=== PATIENT | male | born 1960 | race Caucasian/White ===

== ENCOUNTER 2022-12-09 11:36 | Emergency (ER) | payer MEDICAID, SELFPAY ==
[2022-12-09 11:41] VITALS: BP 112/87; PULSE 94; RESP 18; TEMP 36.8; O2SAT 94
--- NOTE | 2022-12-09 13:10 | ED.GENADUL_ITS ---
Discharge Plan Disposition Patient Disposition: Home Discharge Details Clinical Impression: Fracture of radius and ulna Primary Care Provider: None,None ED Provider: Rodriguez Mullins Home Meds and New Rx's Prescriptions: No Action ibuprofen [Advil] 200 MG tablet 600 mg PO Q8H PRN PRN cephalexin 500 MG capsule 500 mg PO QID Qty: 12 0RF Patient Comments: per pt not taking Discharge Instructions Instructions: Wrist Fracture in Adults (ED) Additional Instructions: You may continue to use [id number] pain medication as needed for discomfort. Please keep splint on and return to the emergency department for any new or significant worsening of symptoms otherwise follow-up with orthopedic clinic next week. Please call the office on Monday morning and they will inform you of your follow-up appointment. Referrals: [facility] [Provider Group] Discharge Data Discharge Date/Time-TO BE ENTERED AT DEPARTURE: 12/09/22 15:12 Medical Decision Making Patient presenting to the emergency department for chief complaint of right wrist pain secondary to trauma. Patient states he was seen at [facility] yesterday after falling off a ladder and fracturing his right wrist. He was told that he needed to be seen by orthopedics today for proper reduction of wound but was splinted in the ER. Patient states that he did not want to follow-up with [facility]. Physical exam shows a splint was in place with sensation cap refill and movement intact distal to splinting with no abnormality noted. We will request records and imaging pushed from [facility] and will consult with our Ortho team. Reviewed radiological imaging and it does appear the patient has a distal radius and ulnar fracture that is comminuted and angulated. Will consult Ortho. Spoke with Dr. Vergara who requested new images today as the images that were reviewed were from previous splinting New images were reviewed and we contacted orthopedist who recommended patient keep splint on and follow-up on an outpatient basis next week. Patient placed on follow-up list and was given orthopedic number to call after the weekend. After discussion of diagnosis and plan of care patient has no further needs, questions, or concerns and states clear understanding to return to the emergency department for any worsening symptoms. This documentation was generated using [employer] system, please disregard any oddities of phrase or misspellings. HPI General Mode of arrival: ambulatory . Date/Time Provider Initiated Documentation: 12/09/22 11:37 . Limitations to Documentation: no limitations . Information obtained by: patient and RN notes reviewed . History of Present Illness 62 year old M presents to the emergency department with the chief complaint of Right wrist fracture, described as mild and moderate, Quality is described as aching, and is localized to the right and upper extremity. Patient started experiencing this day(s) (1) and it has been constant. No relieving factors improve symptom(s), No exacerbating factors reported . Patient notes no other symptoms.. Patient did receive the following treatments prior to arrival, splint Related Data Home Medications Medication Instructions Recorded Confirmed cephalexin 500 mg capsule 500 mg PO QID #12 caps 02/01/13 ibuprofen 200 mg tablet (Advil) 600 mg PO Q8H PRN PRN 02/01/13 12/09/22 Previous Rx's Medication Instructions Recorded cephalexin 500 mg capsule 500 mg PO QID #12 caps 02/01/13 Allergies Allergy/AdvReac Type Severity Reaction Status Date / Time No Known Allergies Allergy Unverified 02/01/13 16:50 General Stated Complaint: Orthopedic VIVIENNE: 4 Review of Systems Constitutional Constitutional: Denies fever(s) Musculoskeletal Musculoskeletal: Reports as per HPI, Reports arthralgias, Denies numbness and Denies tingling Integumentary/Breasts Skin/Breast: Denies unusual bruising Neurologic Neurologic: Denies numbness and Denies tingling PFSH All Active Problems (Updated 12/09/22 @ 15:06 by Rodriguez Mullins NP) Fracture of radius and ulna (Acute) Social History Smoking/Tobacco Use Status: Current every day Smoking risk assessment performed?: Yes Alcohol Intake: former Drug use: Never Do you feel safe at home: Yes Do you feel safe in your relationship?: Yes Exam Const General: cooperative, no acute distress and not ill appearing Orientation: alert, awake and oriented x3 HENMT Mouth: moist mucous membranes Resp Effort & Inspection: normal respiratory effort, able to speak in complete sentences and no respiratory distress Cardio Rate: regular rate Rhythm: regular rhythm Pulses: normal peripheral pulses Neuro General: patient alert, patient awake, patient oriented x3, moves all extremities and no focal motor deficits Sensory Exam: no sensory deficits noted Extrem General: normal exam except as noted Right upper extremity: wrist (Splint in place) and hand Details: normal capillary refill, neuromotor exam normal, neurosensory exam normal, vascular exam Details: normal capillary refill; not cool and no cyanosis and normal ROM of fingers; no ecchymosis Course Vital Signs Vital signs: Vital Signs Temperature 37.8 C H 12/09/22 11:41 Pulse 94 H 12/09/22 11:41 Respiratory Rate 18 12/09/22 11:41 Blood Pressure 112/87 12/09/22 11:41 Pulse Oximetry 94 12/09/22 11:41 Temperature 37.8 C H 12/09/22 11:41 Temperature Source Skin 12/09/22 11:41 Pulse 94 H 12/09/22 11:41 Respiratory Rate 18 12/09/22 11:41 Blood Pressure 112/87 12/09/22 11:41 Blood Pressure Position Sitting 12/09/22 11:41 Pulse Oximetry 94 12/09/22 11:41 Oxygen Delivery Method Room Air 12/09/22 11:41 Oxygen Flow Rate 0 12/09/22 11:41 Pain Level 7 12/09/22 11:41
[2022-12-09 13:30] VITALS: BP 116/88; PULSE 89; RESP 18; TEMP 37.1; O2SAT 95
--- NOTE | 2022-12-09 14:53 | DI.RAD_ITS ---
Exam(s) XR WRIST RT COMPLETE EXAM: XR WRIST RT COMPLETE CLINICAL HISTORY: fracture. TECHNIQUE: 2D digital imaging was performed. Three views. COMPARISON: CR XR WRIST MIN 3 VIEWS RT from 12/08/2022 FINDINGS: A splint is in place. There has been some improvement in the alignment of the comminuted intra-artic ular fracture of distal radius with decreased in the amount posterior angulation. The ulnar styloid fracture is not not changed. No new abnormalities are seen. DATA REPOSITORY: RADIATION DOSE DELIVERED:
== END 2022-12-09 15:12 | disposition home or self-care (01) ==
PROVIDERS: Emergency Provider Nurse Practitioner Family
DX: S52.501A Unspecified fracture of the lower end of right radius, initial encounter for closed fracture (principal); S52.601A Unspecified fracture of lower end of right ulna, initial encounter for closed fracture; X58.XXXA Exposure to other specified factors, initial encounter
CPT/HCPCS: 99283; 73110

== ENCOUNTER 2022-12-14 11:12 | Outpatient (CLI) | payer MEDICAID, SELFPAY ==
--- NOTE | 2022-12-14 10:45 | DI.RAD_ITS ---
Exam(s) XR WRIST RT COMPLETE EXAM: XR WRIST RT COMPLETE CLINICAL HISTORY: fx f/u. TECHNIQUE: 2D digital imaging was performed of the right wrist. Three views were obtained. PA, lat eral and oblique views were obtained. COMPARISON: CR XR WRIST RT COMPLETE from 12/09/2022 FINDINGS: The cast has been removed. BONES: There has been no change in alignment of the fractures involving the distal radius and ulnar s tyloid process. No new fracture is seen. No bony destructive lesion is seen. JOINTS: The carpal bones are normally aligned. SOFT TISSUE: There is soft tissue swelling present. IMPRESSION: Stable alignment of the distal radial ulnar fractures. DATA REPOSITORY: RADIATION DOSE DELIVERED:
== END 2022-12-14 11:13 | disposition home or self-care (01) ==
LOC: DIORS 11:12
PROVIDERS: Visit Provider Student in an Organized Health Care Education/Training Program
DX: S52.351D Displaced comminuted fracture of shaft of radius, right arm, subsequent encounter for closed fracture with routine healing (principal); X58.XXXD Exposure to other specified factors, subsequent encounter
CPT/HCPCS: 73110

== ENCOUNTER 2022-12-15 09:18 | Day surgery (SDC) | payer MEDICAID, SELFPAY ==
[2022-12-15] VITALS (7 sets, daily range): BP systolic 111–195; BP diastolic 58–101; PULSE 49–67; RESP 11–16; TEMP 36.5–37.1; O2SAT 98–100; BMI 17.9
--- NOTE | 2022-12-15 08:15 | ANES.PREOP_ITS ---
General Info Date of Service Date Performed: 12/15/22 Height: 5 ft 9 in Weight: 54.885 kg Body Mass Index (BMI): 17.9 Surgical Procedure: Operation Date: 12/15/22 12:40 Proposed Procedure Side Surgeon p Closed Reduction and Splinting of Wrist Right Rhys Vergara MD Meds Allergies and Home Medications Allergies Allergy/AdvReac Type Severity Reaction Status Date / Time No Known Allergies Allergy Verified 12/15/22 09:25 Home Medication Medication Instructions Recorded ibuprofen 200 mg tablet (Advil) 600 mg PO Q8H PRN PRN 02/01/13 Current Visit Medications: Current Medications Generic Name Dose Route Start Last Admin Trade Name Freq PRN Reason Stop Dose Admin Ringer's Solution 1,000 mls @ 30 mls/hr 12/15/22 06:00 IV 01/13/23 23:59 INFUSION SHAZIA IV Miscellaneous Supplies 1 each 12/15/22 06:00 Iv Access IV 01/13/23 23:59 DIRECTED SHAZIA Sodium Chloride 0 ml 12/15/22 06:00 Normal Saline Flush 10 Ml Syr IV 01/13/23 23:59 PRN PRN Sodium Chloride 0 ml 12/15/22 06:00 Normal Saline 10 Ml Vial IJ 01/13/23 23:59 DIRECTED PRN Sterile Water 0 ml 12/15/22 06:00 Water,Injection,Sterile 10 Ml Vial IJ 01/13/23 23:59 DIRECTED PRN PFSH Active Problems Active Problems: Problem Status Onset Code Fracture of right distal radius 12/08/22 S52.501A Carpal tunnel syndrome of right wrist G56.01 Laceration of right thumb S61.011A Surgical History Surgical History Hx of wisdom tooth extraction Tobacco Smoking/Tobacco Use Status: Current every day Tobacco Type: cigarettes Alcohol Alcohol Intake: former Substance Use Substance use: Never Substance use type: does not use Vital Signs and Lab Results Vital Signs Most Recent Vital Signs in EMR: Temp Pulse Resp BP Pulse Ox 36.8 C 67 16 161/101 H 99 12/15/22 09:28 12/15/22 09:28 12/15/22 09:28 12/15/22 09:28 12/15/22 09:28 Lab Results Blood Type / Crossmatch: No Data to Display Complete Blood Count: No Data to Display Complete Metabolic Panel: No Data to Display Liver Function Panel: No Data to Display Coagulation Panel: No Data to Display Cardiac Panel: No Data to Display Arterial Blood Gas: No Data to Display Venous Blood Gas: No Data to Display Pancreas Panel: No Data to Display Thyroid Panel: No Data to Display Infectious Disease: No Data to Display Blood Cultures: No Data to Display Toxicology Panel: No Data to Display Anesthesia Assessment and Plan Anesthesia History Personal History: No History of Anesthesia Complications Family History: No Family History of Anesthesia Complications Exercise Tolerance Exercise Tolerance: Metabolic Equivalents>4 Cardiac & Pulmonary Exam Cardiac Exam: Normal S1/S2 Heart Sounds Pulmonary Exam: Clear Bilateral Breath Sounds Implantable Cardiac Device Does patient have a Pacemaker or an ICD?: No Airway Exam Known Difficult Airway: No Mallampati Class: 1 Mouth Opening: Normal (> 3cm) Thyromental Distance: Greater than 3 cm Neck Range of Motion: Full ROM Neck Circumference: Normal Teeth Condition: Generalized Poor Dentition and Other (multiple missing, denies loose - but seems unlikely. ) ASA Classification ASA Score: ASA 2 Emergency Case?: No NPO Status NPO Status: NPO Clears >2 hours, Solids >8 hours Anesthesia Plan Resuscitation Status: Full Code Anesthesia Technique: Primary Nerve Block Airway Planned: Natural Airway Monitors Used: Standard Monitors Preoperative Comments:: 62 yo male with wrist fracture for closed reduction. Sig PMHx: daily smoker, former EtOH. denies major health history or health issues. Discussed plan of GA vs primary nerve block, would like to do primary nerve bloc k.
[2022-12-15] MEDS: Lactated Ringers 1,000 ML 30 ML IV (10:01)
--- NOTE | 2022-12-15 10:58 | W.ANESNERVE ---
Nerve Block Single Injection Procedure Date and Time Date Performed: 12/15/22 Procedure Start: 11:50 Location Where Procedure Performed Procedure Location: Day Surgery Unit Reason Performed: Other Requesting Provider: Rhys Vergara Timeout Performed Timeout Performed: Yes Monitoring Used ECG, Blood Pressure and SpO2 Sterility Sterility: Hand Hygiene, Surgical Cap, Surgical Mask, Sterile Gloves and Chlorhexidine Sedation Given During Procedure Sedation Given (Indicate Dose Given): Versed IV Dose:: 2 mg Patient Mental Status Patient Mental Status: Sedate with meaningful communication Nerve Block 1st Nerve Block: Laterality: Right Block Type: Axillary Ultrasound Image Saved?: Yes Needle / Catheter Used: 100mm SonoPlex II Local Anesthetic Bolus (Indicate Dose Given): Lidocaine used for local infiltration of skin, Injected in 3-5ml increments after negative blood aspiration and Bupivacaine 0.5% Dose:: 20 mL Additives (Indicate Dose Given): Epinephrine to make 1:400,000 (2.5mcg/ml) Dose:: 50 mcg and Precedex Dose:: 30 mcg Ultrasound: Sterile probe cover and gel used Nerve Stimulator: Supplement to Ultrasound use and No twitch or parasthesia noted < 0.5 mA Paresthesia: None Procedure Tolerated: No Complications Procedure Outcome: Successful Performed By: Danny Epstein
--- NOTE | 2022-12-15 12:31 | ROE_ITS ---
Date of service: 12/15/22 Time of Service: 13:00 Operative Note Operative Note DATE OF PROCEDURE: 12/15/22 PRE-OP DIAGNOSIS: Right displaced distal radius and ulnar styloid fracture POST-OP DIAGNOSIS: same PROCEDURE: Right distal radius fracture closed reduction with manipulation under anesthesia, CPT #31618 SURGEON: Rhys Vergara ANESTHESIA TYPE: Primary Nerve Block Refer to Anesthesia Record COMPLICATIONS: None Patient was transported to: PACU Patient's condition: stable Indications: Please see complete medical record for details. Procedure Description: In the operating room, appropriate regional anesthesia was confirmed. The patient was positioned supine on the stretcher. All bony prominences were well- padded. Preoperative antibiotics were omitted. The correct patient, procedure, and side of the procedure were all verified prior to incision. The right wrist was examined, all compartments were soft, radial pulse was 2+ with brisk cap refill throughout. There was obvious moderate dorsal deformity and distal radius prominence. The single shotgun shell assembly machine operator reduction maneuver was used with combined traction, exaggeration of deformity, followed by volar directed reduction force. There was majority reduction with good distal radius alignment however the oblique fracture was still visible on the dorsal cortex. An additional reduction move was then done and then lastly again to exaggerate the reduction completing majority reduction of this dorsal fragment. The dorsal tilt was corrected. Radial inclination and height were appropriate. A plaster sugar-tong splint was then applied to the forearm appropriately molded to maintain reduction. C arm fluoroscopy was used to confirm good reduction and splint. The patient tolerated the procedure without complication and was transferred to the recovery room in a stable condition.
--- NOTE | 2022-12-15 12:32 | PDOC.DSDIS_ITS ---
Date of service: 12/15/22 Time of Service: 13:55 Discharge Plan Disposition Patient Disposition: Home Condition: Stable Discharge Details Attending Provider: Rhys Vergara Primary Care Provider: None,None Home Meds and New Rx's Prescriptions: Continued ibuprofen [Advil] 200 MG tablet 600 mg PO Q8H PRN PRN Discharge Instructions Additional Instructions: Surgery: Right wrist closed reduction with manipulation and splinting under anesthesia Activity: Nonweightbearing right wrist. Elevate to minimize swelling. Encourage range of motion to all fingers and thumb to prevent stiffness. Light use of hand okay. Prescriptions: None You may use [id number] Motrin (ibuprofen) as needed for moderate pain and/or Tylenol (acetaminophen) as needed for mild pain. Dressings: Leave splint and dressing in place until follow-up. Keep clean and dry at all times. Follow-up: 10-14 days with an orthopedic physician senior it assistant for repeat x-rays and likely transition to short arm cast for 3 weeks You may take off the leg compression stockings this evening at home. You may also leave them on a few days longer if you have a history of leg swelling or edema. Let us know right away if you develop any redness, drainage, fevers, chest pain, or trouble breathing. Do not drink alcohol or drive for at least 24 hours after anesthesia. Please call the office during business hours with any questions or concerns. Discharge Orders Discharge Orders: Discharge Order (Routine); Ordered 12/15/22 Ordered By: Rhys Vergara DS: Diagnosis Discharge Diagnosis (1) Fracture of right distal radius: Status: Acute
--- NOTE | 2022-12-15 12:45 | DI.RAD_ITS ---
Exam(s) XR WRIST RT LIMITED EXAM: XR WRIST RT LIMITED CLINICAL HISTORY: wrist fracture. TECHNIQUE: 2D digital imaging was performed. COMPARISON: No exams were available for comparison FINDINGS: Possibly provided for close reduction wrist fracture. See procedure report for details. Total fluoroscopy time 9 seconds IMPRESSION: Radiation exposure index/cumulative dose: Ka,r= 0.1552mGy DATA REPOSITORY: RADIATION DOSE DELIVERED:
--- NOTE | 2022-12-15 14:04 | W.ANESPOSTOP ---
Postoperative Evaluation Date, Time and Location Date Performed: 12/15/22 Time Performed: 14:04 Patient Location: Day Surgery Unit Vital Signs Most Recent Imported Vital Signs: Most Recent Vital Signs Temp Pulse Resp BP Pulse Ox 36.7 C 49 L 16 120/78 99 12/15/22 13:56 12/15/22 13:56 12/15/22 13:56 12/15/22 13:56 12/15/22 13:56 Pain Score Most Recent Pain Score: Most Recent Pain Score Pain Level 0 12/15/22 13:20 Assessment Mental Status: Awake (Alert & Oriented to Patient Baseline) Airway and Respiratory Function: Patent airway with normal (patient baseline) respiratory exam Cardiovascular Function: Hemodynamically Stable Hydration Status: Adequately Hydrated Nausea & Vomiting: No Nausea or Vomiting Pain: Pt. Denies Any Pain Peripheral Nerve Block: Regional nerve block not resolved at time of post operative discharge
== END 2022-12-15 15:05 | disposition home or self-care (01) ==
PROVIDERS: Visit Provider Student in an Organized Health Care Education/Training Program
PROC: (CPT 25605; principal; 2022-12-15 12:30)
DX: S52.501A Unspecified fracture of the lower end of right radius, initial encounter for closed fracture (principal); X58.XXXA Exposure to other specified factors, initial encounter
CPT/HCPCS: 25605; 76942; 73100; J0171; J2250; J2704

== ENCOUNTER 2022-12-27 14:35 | Outpatient (CLI) | payer MEDICAID, SELFPAY ==
--- NOTE | 2022-12-27 14:30 | DI.RAD_ITS ---
Exam(s) XR WRIST RT LIMITED EXAM: XR WRIST RT LIMITED CLINICAL HISTORY: RIGHT DISTAL RADIUS FX. TECHNIQUE: 2D digital imaging was performed of the right wrist. Two views were obtained. PA and la teral views were obtained. COMPARISON: CR XR WRIST RT COMPLETE from 12/14/2022 XA XR WRIST RT LIMITED from 12/15/2022 FINDINGS: BONES: There has been no change in alignment of the comminuted distal radial fracture with compared t o the postreduction images. There is also been no significant change in alignment of the comminuted ulnar styloid process fracture. No new fracture seen. No bony destructive lesion is seen. JOINTS: The carpal bones are normally aligned. SOFT TISSUE: There is soft tissue swelling of the wrist. IMPRESSION: Stable post reduction distal radial and ulnar fractures. DATA REPOSITORY: RADIATION DOSE DELIVERED:
== END 2022-12-27 14:36 | disposition home or self-care (01) ==
LOC: DIORS 14:35
PROVIDERS: Visit Provider Physician Assistant
DX: S52.351D Displaced comminuted fracture of shaft of radius, right arm, subsequent encounter for closed fracture with routine healing (principal); X58.XXXD Exposure to other specified factors, subsequent encounter
CPT/HCPCS: 73100

== ENCOUNTER 2023-01-17 14:34 | Outpatient (CLI) | payer MEDICAID, SELFPAY ==
--- NOTE | 2023-01-17 13:00 | DI.RAD_ITS ---
Exam(s) XR WRIST RT LIMITED EXAM: XR WRIST RT LIMITED CLINICAL HISTORY: F/U FRACTURE. TECHNIQUE: 2D digital imaging was performed of the right wrist. Two views were obtained. PA and la teral views were obtained. COMPARISON: CR XR WRIST RT LIMITED from 12/27/2022 FINDINGS: BONES: There is no change in alignment of the fracture of the distal radius. The ulnar styloid proce ss fracture is also stable. No new fractures are seen. No bony destructive lesion is seen. JOINTS: The carpal bones are normally aligned. SOFT TISSUE: Normal. IMPRESSION: Stable alignment of the distal radial and ulnar fractures. DATA REPOSITORY: RADIATION DOSE DELIVERED:
== END 2023-01-17 14:35 | disposition home or self-care (01) ==
LOC: DIORS 14:34
PROVIDERS: Visit Provider Student in an Organized Health Care Education/Training Program
DX: S52.351D Displaced comminuted fracture of shaft of radius, right arm, subsequent encounter for closed fracture with routine healing (principal); X58.XXXD Exposure to other specified factors, subsequent encounter
CPT/HCPCS: 73100

== ENCOUNTER 2023-02-14 11:32 | Outpatient (CLI) | payer MEDICAID, SELFPAY ==
--- NOTE | 2023-02-14 10:45 | DI.RAD_ITS ---
Exam(s) XR WRIST RT LIMITED EXAM: XR WRIST RT LIMITED CLINICAL HISTORY: F/U FRACTURE. TECHNIQUE: 2D digital imaging was performed. COMPARISON: CR XR WRIST RT LIMITED from 01/17/2023 FINDINGS: Two views. Fracture site in the distal radius appears unchanged. This fracture appears to violate the articular surface of the radiocarpal joint. Fracture of the base of the ulnar styloid process is again noted, exhibiting some healing. IMPRESSION: Stable appearance of mildly impacted fracture of distal radius and ulnar styloid DATA REPOSITORY: RADIATION DOSE DELIVERED:
== END 2023-02-14 11:33 | disposition home or self-care (01) ==
LOC: DIORS 11:33
PROVIDERS: Visit Provider Student in an Organized Health Care Education/Training Program
DX: S52.511D Displaced fracture of right radial styloid process, subsequent encounter for closed fracture with routine healing (principal); X58.XXXD Exposure to other specified factors, subsequent encounter
CPT/HCPCS: 73100

== ENCOUNTER 2023-04-18 15:10 | Outpatient (CLI) | payer MEDICAID, SELFPAY ==
--- NOTE | 2023-04-18 12:45 | DI.RAD_ITS ---
Exam(s) XR WRIST RT LIMITED EXAM: XR WRIST RT LIMITED CLINICAL HISTORY: evaluate healing. TECHNIQUE: 2D digital imaging was performed. COMPARISON: CR XR WRIST RT LIMITED from 02/14/2023 FINDINGS: Two views. The previously described fracture of the distal radius and ulnar styloid appear unchanged from 2022 there is no significant ulnar variance. The amount of impaction of the radial fracture is uncha nged. No significant angulation. Scaphoid and scapholunate distance remains normal. No evidence of carpal dislocation. IMPRESSION: Unchanged from 02/14/2023. DATA REPOSITORY: RADIATION DOSE DELIVERED:
== END 2023-04-18 15:11 | disposition home or self-care (01) ==
LOC: DIORS 15:14
PROVIDERS: Visit Provider Student in an Organized Health Care Education/Training Program
DX: S52.501D Unspecified fracture of the lower end of right radius, subsequent encounter for closed fracture with routine healing (principal); S52.601D Unspecified fracture of lower end of right ulna, subsequent encounter for closed fracture with routine healing; X58.XXXD Exposure to other specified factors, subsequent encounter
CPT/HCPCS: 73100